=== PATIENT | female | born 1930 | race Caucasian/White ===

== ENCOUNTER 2019-09-29 12:02 | Day surgery (SDC) | payer MEDICARE, BC ==
[2019-09-28 08:35] VITALS: BMI 21.8
[~2019-09-29 12:02] MED LIST: Lidocaine 1% PF 5 ML VIAL ONE; PROPOFOL 200 MG/20 ML VIAL ONE
--- NOTE | 2019-09-29 16:59 | OP ---
DATE OF PROCEDURE: 09/29/2019 PROCEDURE PERFORMED: Esophagogastroduodenoscopy with balloon dilation of distal esophageal ring. PREPROCEDURE DIAGNOSES: 1. Chronic recurrent cough. 2. History of esophageal stricture. 3. History of ineffective esophageal motility disorder. POSTPROCEDURE DIAGNOSES: 1. Exam to second portion of duodenum. 2. 3 cm hiatal hernia. 3. Early Schatzki ring in the distal esophagus at 35 cm from the incisors, nonobstructing, gently dilated with an 18 mm TTS balloon. 4. Biopsies obtained in the distal esophagus for histology. 5. Multiple sessile gastric polyps in the fundus and proximal body, biopsied. 6. Otherwise, normal stomach. 7. Normal duodenum. DESCRIPTION OF PROCEDURE: Written informed consent was obtained. The patient was brought to the endoscopy suite. Total intravenous anesthesia was administered by Mr. Brando Layne CRNA. The patient was placed in the left lateral decubitus position. A bite block was inserted into the mouth. A Pentax video diagnostic gastroscope was introduced into the oral cavity, and the esophagus was carefully intubated. The endoscope was advanced under direct visualization to the second portion of the duodenum. Endoscopic findings revealed a 3 cm hiatal hernia located at 35 to 38 cm from the incisors. At 35 cm, a widely patent nonobstructing Schatzki ring was identified. There was no evidence of ulceration or erosion in the esophagus. After the dilation, biopsies were obtained for histology in the lower esophagus. The endoscope was advanced into the stomach, and the stomach was carefully examined including a retroflexed view of the cardia and fundus. This view demonstrated the hiatal hernia. Also seen were multiple sessile polyps in the fundus and proximal body most consistent with benign fundic polyps. Biopsies were obtained for histology. No other abnormalities were noted in the stomach. The exam of the duodenum from the bulb to the second portion was grossly normal. Using an 18 mm TTS balloon, the distal esophageal ring was dilated for 1 minute intervals at stage II and stage III inflation pressures up to 18 mm in diameter. Postdilation, the esophagus was inspected and appeared somewhat more patent, but no overt tear or bleeding was identified. As stated above, biopsies were obtained in the distal esophagus for histology. The esophagus and stomach were then decompressed as the endoscope was completely removed from the patient. She was repositioned for the colonoscopy. There were no immediate complications. RECOMMENDATIONS: 1. Await biopsy results. 2. Continue Protonix daily. 3. Resume other previous medications. 4. Follow up in GI Clinic in 2 weeks. Job ID: [id number]
--- NOTE | 2019-09-29 17:18 | OP ---
DATE OF PROCEDURE: 09/29/2019 PRIMARY CARE DOCTOR: Dr. Charles Arias. He is actually a thoracic surgeon in [place] at [facility]. PROCEDURE PERFORMED: Colonoscopy with fecal microbiota transplant. PREPROCEDURE DIAGNOSIS: Recurring Clostridioides infection (6 previous episodes). POSTPROCEDURE DIAGNOSES: 1. Exam to mid ascending colon; adequate bowel preparation. 2. Diffusely tortuous and redundant colon. 3. No obvious colitis or ulcers. 4. Colon, status post transplant of donor feces. 5. Cecum not examined due to redundant colon. DESCRIPTION OF PROCEDURE: Written informed consent was obtained. The patient was repositioned after the upper endoscopy. Total intravenous anesthesia was provided by Mr. Brando Layne CRNA. The patient was placed in the left lateral decubitus position. A digital rectal exam was performed and revealed a perianal tag. A Pentax video colonoscope was inserted through the anal canal and advanced under direct visualization to the mid ascending colon. Due to redundancy of the colon, the colonoscope tip could not be safely advanced above the mid ascending colon. Endoscopic findings revealed a grossly normal-appearing colonic mucosa with no overt colitis or ulcers. No neoplasms were identified. The exam was somewhat limited due to the presence of liquid stool and vegetable material scattered throughout the colon. Using a human donor feces manufactured by [employer], a total of 250 mL of liquid fecal material was deposited in the ascending, transverse, and a portion of the proximal descending colon. No additional irrigation water or suctioning was performed after the donor stool was deposited. The colonoscope was slowly removed from the colon, and the procedure was terminated. The patient was transferred to the Day Stay surgery area for postprocedure monitoring. There were no immediate complications. RECOMMENDATIONS: 1. Advised the patient to maintain reclined or supine position for the next 3 hours. 2. Avoid defecating fecal liquid for as long as possible. 3. Resume usual diet. 4. Follow up in GI Clinic in 2 weeks. Job ID: [id number]
== END 2019-09-29 16:10 | disposition home or self-care (01) ==
LOC: SDC 12:02
PROVIDERS: ATTEND Internal Medicine Gastroenterology
PROC: 0DB38ZX Excision of Lower Esophagus, Via Natural or Artificial Opening Endoscopic, Diagnostic (ICD-10-PCS; principal; 2019-09-29)
PROC: 0D738ZZ Dilation of Lower Esophagus, Via Natural or Artificial Opening Endoscopic (ICD-10-PCS; 2019-09-29)
PROC: 3E0H8GC Introduction of Other Therapeutic Substance into Lower GI, Via Natural or Artificial Opening Endoscopic (ICD-10-PCS; 2019-09-29)
DX: K22.2 Esophageal obstruction (principal); K44.9 Diaphragmatic hernia without obstruction or gangrene; K31.7 Polyp of stomach and duodenum; K21.0 Gastro-esophageal reflux disease with esophagitis; A04.71 Enterocolitis due to Clostridium difficile, recurrent; Q43.8 Other specified congenital malformations of intestine; K21.9 Gastro-esophageal reflux disease without esophagitis; M19.90 Unspecified osteoarthritis, unspecified site; E07.9 Disorder of thyroid, unspecified; I10 Essential (primary) hypertension; E78.00 Pure hypercholesterolemia, unspecified; Z79.899 Other long term (current) drug therapy; Z88.2 Allergy status to sulfonamides; Z88.5 Allergy status to narcotic agent
CPT/HCPCS: 43239; 43249; 88305; 88312; 88313; G0455; J2001; J2704

== ENCOUNTER 2019-09-30 19:49 | Inpatient (IN) | payer MEDICARE, BC ==
[~2019-09-30 19:49] MED LIST changes: +Iopamidol-370 76% 500 ML 1 ML ONE; -Lidocaine 1% PF 5 ML VIAL ONE; -PROPOFOL 200 MG/20 ML VIAL ONE
[2019-09-30] MEDS ORDERED: Piperacillin/Tazobactam 4.5 GM VIAL ONE (20:23)
[2019-09-30 20:29] LABS: Hemoglobin 11.7 g/dL (12.0-16.0); Mean Corpuscular Hemoglobin 31.2 pg (27.0-31.0); Mean Corpuscular Volume 91.6 fL (78.0-98.0); Mean Platelet Volume 5.7 fL (7.4-10.4); Platelet Count 376 thou/uL (130-400); RBC Distribution Width 12.1 % (11.5-14.5); Red Blood Cell (RBC) Count 3.74 mill/uL (4.20-5.40); White Blood Cell (WBC) Count 13.4 thou/uL (4.8-10.8)
--- NOTE | 2019-09-30 20:36 | RAD ---
XR Chest 1 View Portable HISTORY: Altered mental status COMPARISON: 11/11/2010 FINDINGS: The heart size is normal. The lungs are well expanded without focal areas of consolidation, pneumothorax or pleural effusions. IMPRESSION: No radiographic evidence of acute cardiopulmonary process.
[2019-09-30 20:53] LABS: ALT (SGPT) 13 U/L (8-55); AST (SGOT) 20 U/L (5-34); Albumin 4.1 g/dL (3.4-4.8); Alkaline Phosphatase 55 U/L (40-110); Anion Gap 15 mmol/L (10-20); BUN (Urea Nitrogen) 14 mg/dL (9.8-20.1); Bilirubin, Total 0.4 mg/dL (0.2-1.2); Calc. Creatinine Clearance 0 mL/min (70-130); Calcium 9.2 mg/dL (7.8-10.44); Carbon Dioxide 24 mmol/L (23-31); Chloride 94 mmol/L (98-107); Estimated GFR-MDRD 48; Globulin 2.9 g/dL (2.4-3.5); Glucose 167 mg/dL (83-110); Potassium 3.8 mmol/L (3.5-5.1); Sodium 129 mmol/L (136-145)
[2019-09-30 21:00] LABS: Band 6 % (5-11); Hypochromia SLIGHT = 6-15 cells (100X) (0-5/hpf); MDiff Complete? YES; Monocytes 2 % (0-10); Neutrophil 92 % (42-75); Platelet Morphology Comment Appears Adequate
--- NOTE | 2019-09-30 21:35 | CT ---
CT ABDOMEN AND PELVIS WITH IV CONTRAST; 09/30/19 HISTORY: Abdominal pain. FINDINGS: There is suggestion of a mas sin the right retroareolar breast. Old right sided rib fractures are pre sent. There are infiltrates at the lung bases, right greater than left. No calcified gallstones are s een. The liver, pancreas and adrenal glands are normal. There are calcified granulomas in the spleen. There are cysts in the kidneys. The urinary bladder is markedly distended. No free air, free fluid, or lymphadenopathy is seen in the abdomen or pelvis. There are vascular calcifications without evide nce of aneurysm dilation of the abdominal aorta. There are degenerative changes and dextroscoliosis o f the lumbar spine. The small bowel loops are not abnormally dilated. The patient is post hysterecto my. IMPRESSION: 1. Probable right breast mass. Evaluation with mammogram and right breast ultrasound is recommen ded. 2. Calcified splenic granulomas. 3. Bilateral renal cysts. 4. Distended urinary bladder. 5. Dextroscoliosis of the lumbar spine. 6. Bibasilar infiltrates, right greater than left. POS: OFF
[2019-09-30] MEDS ORDERED: Cefepime 2 GM VIAL ONE (22:05)
[2019-09-30 23:03] LABS: Bacteria/HPF None Seen HPF (None Seen); Bilirubin Negative (Negative); Blood, Urine Trace (Negative); Clarity Clear (Clear); Glucose, Urine (Dipstick) Normal (Negative); Leukocyte Negative Leu/uL (Negative); Nitrite Negative (Negative); Protein, Urine (Dipstick) 20 mg/dL (Neg-Trace); RBC/HPF 0-3 HPF (0-3); Squamous Epithelial 0-3 HPF (0-3); Urobilinogen Normal mg/dL (Less than 2); WBC/HPF 0-3 HPF (0-3)
[2019-09-30 23:16] LABS: Troponin I 0.067 ng/mL (< 0.028)
[2019-09-30] MEDS ORDERED: Ondansetron PF 4 MG/2 ML Vial IVP PRN (23:59)
[2019-09-30] MEDS ORDERED: Ondansetron ODT 4 MG TAB SL PRN (23:59)
[2019-10-01 01:54] LABS: Troponin I 0.072 ng/mL (< 0.028)
[2019-10-01] MEDS ORDERED: Acetaminophen 325 MG TAB PO PRN (02:00)
[2019-10-01] MEDS ORDERED: Oseltamivir 6 MG/ML ORAL SUSP PO SCH (02:30)
[2019-10-01] MEDS: Lactated Ringer's 1,000 ML IV SCH ×2 (03:50→04:07)
[2019-10-01] MEDS ORDERED: Simethicone Chewable 80 MG TAB PO PRN (03:53)
[2019-10-01] MEDS ORDERED: Simethicone Chewable 80 MG TAB PO SCH (04:00)
[2019-10-01] MEDS: Acetaminophen 650 MG/20.3 ML UDCUP PO PRN ×3 (04:07→20:38)
[2019-10-01] MEDS: Sodium Chloride 0.9% 1,000 ML IV SCH ×3 (04:11→23:35)
--- NOTE | 2019-10-01 04:50 | PDOC.FPRHP ---
- History of Present Illness Chief Complaint: AMS History of Present Illness: Pt is an 89 yo female who presented to the emergency department with AMS, abdominal pain, chest pain. She became altered on 09/30 noticed by her son in the afternoon. She was febrile as well and given tylenol by her son. She was complaining of diffuse abdominal pain. 09/29 she had a fecal transplant c-diff infection. During her interview she denied any chest pain but it was reported by the emergency department. Otherwise unable to obtain any information from the patient due to mental status. Her son was not with her during interview. ED Course: In the ED she had a CT abdomen revealing no acute abdominal pathology but did find bilateral lower lobe pneumonia not seen on CXR. She received NS 1.5 L, levaquin, cefepime, vanc, and zosyn. WBC mildly elevated, 12.4. Na 129. Trop 0.067. - Allergies/Adverse Reactions Allergies Allergy/AdvReac Type Severity Reaction Status Date / Time codeine Allergy Verified 10/01/19 00:48 hydrocodone [From Vicodin] Allergy Verified 10/01/19 00:48 Sulfa (Sulfonamide Allergy Verified 10/01/19 00:48 Antibiotics) - Home Medications Medication Instructions Recorded Confirmed Type Amitriptyline HCl 1 tab PO HS PRN 09/28/19 10/01/19 History Levothyroxine Sodium [Synthroid] 125 mcg PO DAILY 09/28/19 10/01/19 History Mirabegron [Myrbetriq] 50 mg PO DAILY 09/28/19 10/01/19 History Pantoprazole [Protonix] 60 mg PO DAILY 09/28/19 10/01/19 History Spironolactone 25 mg PO BID 09/28/19 10/01/19 History Ondansetron [Zofran ODT] 1 tab PO Q6HR PRN 10/01/19 10/01/19 History Vancomycin HCl 1 tab PO QID 10/01/19 10/01/19 History predniSONE 1 tab PO DAILY 10/01/19 10/01/19 History - History PMHx: HTN, Recent C-diff infection w/ fecal transplant 09/29, scoliosis, GERD PSHx: unable to obtain FHx: unable to obtain Social: unable to obtain - Review of Systems ROS unobtainable: due to mental status Cardiovascular: denies: chest pain Gastrointestinal: reports: abdominal pain. denies: diarrhea Musculoskeletal: reports: pain (Pt was AAO x 3 but had difficulty answering questions with discomfort, understanding of questions) - Vital signs BP: 158/72 HR: 126 RR: 20 Tmax: 100.2 Pox: 95% on 3L Wt: 47 kg - Physical Exam Constitutional: awake, alert and oriented -Constitutional: uncomfortable appearing HEENT: PERRLA, EOMI Neck: FROM, no JVD Heart: RRR, normal S1/S2, no murmurs/rubs/gallops, no edema -Lungs: Crackles in R base, did not appreciate crackles in L, air movement not diminished -Abdomen: mild distention, tenderness to deep palpation, bowel sounds present -Skin: abrasion on lateral RLE Heme/Lymphatic: no purpura, no petechia -Psychiatric: poor memory FMR H&P: Results - Labs Result Diagrams: 10/01/19 04:52 10/01/19 04:52 Lab results: WBC 13.4 thou/uL (4.8-10.8) H 09/30/19 20:18 Hgb 11.7 g/dL (12.0-16.0) L 09/30/19 20:18 Hct 34.3 % (36.0-47.0) L 09/30/19 20:18 MCV 91.6 fL (78.0-98.0) 09/30/19 20:18 Plt Count 376 thou/uL (130-400) 09/30/19 20:18 Band Neuts % (Manual) 6 % (5-11) 09/30/19 20:18 Sodium 129 mmol/L (136-145) L 09/30/19 20:18 Potassium 3.8 mmol/L (3.5-5.1) 09/30/19 20:18 Chloride 94 mmol/L (98-107) L 09/30/19 20:18 Carbon Dioxide 24 mmol/L (23-31) 09/30/19 20:18 BUN 14 mg/dL (9.8-20.1) 09/30/19 20:18 Creatinine 1.07 mg/dL (0.6-1.1) 09/30/19 20:18 Glucose 167 mg/dL (83-110) H 09/30/19 20:18 Lactic Acid 0.8 mmol/L (0.5-2.2) 09/30/19 20:18 Calcium 9.2 mg/dL (7.8-10.44) 09/30/19 20:18 Total Bilirubin 0.4 mg/dL (0.2-1.2) 09/30/19 20:18 AST 20 U/L (5-34) 09/30/19 20:18 ALT 13 U/L (8-55) 09/30/19 20:18 Alkaline Phosphatase 55 U/L (40-110) 09/30/19 20:18 Serum Total Protein 7.0 g/dL (6.0-8.3) 09/30/19 20:18 Albumin 4.1 g/dL (3.4-4.8) 09/30/19 20:18 Urine Ketones 10 mg/dL (Negative) A 09/30/19 22:17 Urine Blood Trace (Negative) A 09/30/19 22:17 Urine Nitrite Negative (Negative) 09/30/19 22:17 Ur Leukocyte Esterase Negative Krish/uL (Negative) 09/30/19 22:17 Urine RBC 0-3 HPF (0-3) 09/30/19 22:17 Urine WBC 0-3 HPF (0-3) 09/30/19 22:17 Ur Squamous Epith Cells 0-3 HPF (0-3) 09/30/19 22:17 Urine Bacteria None Seen HPF (None Seen) 09/30/19 22:17 - EKG Interpretation EKG: Sinus tachycardia, PAC present - Radiology Interpretation CT scan - abdomen Status: report reviewed by me Additional comment: No acute abdominal abnormalities, bilateral pulm infiltrates Chest x-ray Status: image reviewed by me Additional comment: no acute abnormalities, rotate chest FMR H&P: A/P - Problem List (1) Bilateral pneumonia Current Visit: Yes Status: Acute Code(s): J18.9 - PNEUMONIA, UNSPECIFIED ORGANISM (2) Influenza Current Visit: Yes Status: Acute Code(s): J11.1 - FLU DUE TO UNIDENTIFIED INFLUENZA VIRUS W OTH RESP MANIFEST (3) Hyponatremia Current Visit: Yes Status: Acute Code(s): E87.1 - HYPO-OSMOLALITY AND HYPONATREMIA (4) Elevated troponin Current Visit: Yes Status: Acute Code(s): R79.89 - OTHER SPECIFIED ABNORMAL FINDINGS OF BLOOD CHEMISTRY (5) Breast mass, right Current Visit: Yes Status: Acute Code(s): N63.10 - UNSPECIFIED LUMP IN THE RIGHT BREAST, UNSPECIFIED QUADRANT - Plan Pt is an 89 yo female here for: # Bilateral Pneumonia, HAP Recent procedure. Treating for HAP. - cefepime, levaquin, vanc - NS 1.5 L - NS 75 mls/hr - tylenol prn - NC oxygen as needed # Influenza - Tamiflu 30 mg daily, adjust for CrCl. Currently CrCL 26 # C-Diff w/ fecal transplant on 09/29 - safety pre-cautions # Abdominal Pain likely 09/25 gas - simethicone one time # Hyponatremia - pending urine/serum osmol - likely secondary to dehydration # R Breast Mass - mammogram outpt if pt and family want to pursue # Follow up with son for PMH. - he will bring in home medications on 10/01 Fluids: NS 75 mls/hr Diet: HH VTE: lovenox Code: Full Dispo: > 48 hrs FMR H&P: Upper Level - Plan Date/Time: 10/01/19 0447 Pamela Sawyer DO, have evaluated this patient and agree with findings/plan as outlined by promotions intern resident. Pertinent changes/additions are listed here. Pt is a 83yo F with hx of recurrent Cdiff undergoing endoscopy with fecal transplant yesterday who presented to ED today with fever and AMS. She was found to meet sepsis criteria with reported fever 103 at home, (Tmax 100.3 here) , tachycardia, and elevated WBC 13.4. On CTscan of abd she was found to have b/ l pneumonia of lower lobes. She was also found to be influenza A positive. VS significant for tachycardia and O2 sats of 97% on 3L. Family is no longer around, but patient is conversational and AOx2. She complains of abdominal pain and cough. On exam she is ill appearing, mildly tachypnic, and moaning. She has soft systolic murmur 2/6. Her abdomen is distended and mildly ttp, no guarding or rebound. Labs significant for LA 1.6, Na 129, WBC13.4, 6% bands. She received IV Vanc, Zosyn, Cefepime, and Levaquin in ED. A/P: 1) Sepsis 2/2 Influenza and Bilateral PNA- concern for HAP although not technically sx onset after 48h of hospital stay. Will continue Vanc, Cefepime, and Levaquin. S/p 30ml/kg NS bolus. Continue MIVF. Start Tamiflu. Blood cx/ urine cx pending. Procal pending. 2)MILANA vs CKD: s/p IVF, repeat in AM, consider urine studies to further evaluate. Renally dose meds. 3)Abdominal Pain and Distension Likely 2/2 Gas Pain- give simethicone 4)Hyponatremia: Likely hypovolemic hyponatremia. s/p IVF, Continue maintenance IVF with NS. Urine and serum Osms pending. 5)Elevated Troponin: trend. No EKG ST changes concerning for ACS. Awaiting home med rec. Plan to restart appropriate meds for chronic medical problems. See promotions intern note for further details. DVT PPx: Lovenox GI Ppx: none Dispo: Stable, LOS>48h Addendum - Attending - Attending Attestation Date/Time: 10/01/19 8252 I personally evaluated the patient and discussed the management with Dr. Tian and Scott. I agree with the History, Examination, Assessment and Plan documented above with any addition or exceptions noted below. Was feeling much better this morning when I examined her. No cp/sob. Mild cough. Otherwise no complaints.
[2019-10-01 05:01] LABS: #Lymphocytes 0.4 thou/uL (1.20-3.40); #Monocytes 0.7 thou/uL (0.11-0.59); #Neutrophils 17.5 thou/uL (1.40-6.50); %Basophils 0.2 % (0.0-1.0); %Eosinophils 0.1 % (0.0-10.0); %Lymphocytes 2.1 % (21.0-51.0); %Monocytes 3.7 % (0.0-10.0); %Neutrophils 93.9 % (42.0-75.0); Hemoglobin 10.6 g/dL (12.0-16.0); Mean Corpuscular HGB CONC 34.2 g/dL (32.0-36.0); Mean Corpuscular Hemoglobin 31.4 pg (27.0-31.0); Mean Corpuscular Volume 91.9 fL (78.0-98.0); Mean Platelet Volume 5.7 fL (7.4-10.4); Platelet Count 317 thou/uL (130-400); RBC Distribution Width 12.1 % (11.5-14.5); Red Blood Cell (RBC) Count 3.38 mill/uL (4.20-5.40); White Blood Cell (WBC) Count 18.6 thou/uL (4.8-10.8)
[2019-10-01 05:15] LABS: Anion Gap 15 mmol/L (10-20); BUN (Urea Nitrogen) 13 mg/dL (9.8-20.1); Calc. Creatinine Clearance 37 mL/min (70-130); Calcium 8.3 mg/dL (7.8-10.44); Carbon Dioxide 18 mmol/L (23-31); Chloride 99 mmol/L (98-107); Estimated GFR-MDRD 64; Glucose 121 mg/dL (83-110); Potassium 3.6 mmol/L (3.5-5.1); Sodium 128 mmol/L (136-145)
[2019-10-01 05:20] LABS: Troponin I 0.049 ng/mL (< 0.028)
[2019-10-01] MEDS: Oseltamivir 75 MG CAP PO SCH ×2 (08:52→20:37)
[2019-10-01] MEDS: Simethicone Chewable 80 MG TAB PO SCH ×4 (08:52→20:37)
[2019-10-01] MEDS: Cefepime 2 GM in Sodium Chloride 0.9% 100 ML IVPB SCH ×2 (08:53→20:38)
[2019-10-01] MEDS: Enoxaparin Sodium 30 MG/0.3 ML SYRINGE SC SCH (08:54)
[2019-10-01] MEDS ORDERED: Amitriptyline HCl 10 MG TAB PO PRN (17:23)
[2019-10-01] MEDS ORDERED: Ondansetron ODT 4 MG TAB PO PRN (17:23)
--- NOTE | 2019-10-01 19:08 | PDOC.BPN ---
- Brief Progress Note At 1830 on 10/01 the Resident Night Team was notified by Nursing staff that patient was coughing severely and potentially aspirating fluids during attempted swallowing. The patient was evaluated and counseled on the importance of avoiding aspiration events while being treated for PNA. The patient was encouraged to allow Medical Staff to place an order for Speech Therapy to do a formal evaluation for her swallowing function and to tailor diet and liquid regimens as needed in order to avoid potentially worsening her PNA. The patient stated that she understood the risks associated with aspiration and that she had been seen by many doctors for this in the past, and that she had a small hiatal hernia that "we couldn't do anything about." She adamantly denied the Resident Night Team's recommendation to be formally evaluated, and stated that she did not feel that her coughing was problematic. She stated that she did not want to be seen by any additional Medical Staff for the duration of the evening.
[2019-10-01] MEDS: Spironolactone 25 MG TAB PO SCH (20:37)
[2019-10-01] MEDS ORDERED: FLU VACC TS2019-20(65YR UP)/PF 180 MCG/0.5 ML SYRINGE IM ONE (21:00)
[2019-10-01] MEDS ORDERED: Prevnar 13-Val Conj/PF 0.5 ML SYRINGE IM ONE (21:00)
[2019-10-01 22:31] LABS: Vancomycin, Random 6.6 ug/mL (See Comment)
[2019-10-01] MEDS ORDERED: Vancomycin HCl 750 MG in Sodium Chloride 0.9% 250 ML 250 ML IVPB SCH (23:00)
[2019-10-02 05:03] LABS: #Lymphocytes 0.6 thou/uL (1.20-3.40); #Monocytes 0.4 thou/uL (0.11-0.59); %Basophils 0.2 % (0.0-1.0); %Eosinophils 0.1 % (0.0-10.0); %Lymphocytes 4.1 % (21.0-51.0); %Monocytes 2.9 % (0.0-10.0); %Neutrophils 92.8 % (42.0-75.0); Hemoglobin 10.3 g/dL (12.0-16.0); Mean Corpuscular HGB CONC 33.6 g/dL (32.0-36.0); Mean Corpuscular Hemoglobin 31.3 pg (27.0-31.0); Mean Corpuscular Volume 93.2 fL (78.0-98.0); Mean Platelet Volume 6.3 fL (7.4-10.4); Platelet Count 299 thou/uL (130-400); RBC Distribution Width 12.3 % (11.5-14.5); Red Blood Cell (RBC) Count 3.29 mill/uL (4.20-5.40); White Blood Cell (WBC) Count 15.1 thou/uL (4.8-10.8)
[2019-10-02 05:23] LABS: Anion Gap 10 mmol/L (10-20); BUN (Urea Nitrogen) 10 mg/dL (9.8-20.1); Calc. Creatinine Clearance 43 mL/min (70-130); Calcium 7.9 mg/dL (7.8-10.44); Carbon Dioxide 20 mmol/L (23-31); Chloride 102 mmol/L (98-107); Estimated GFR-MDRD 76; Glucose 74 mg/dL (83-110); Potassium 3.3 mmol/L (3.5-5.1); Sodium 129 mmol/L (136-145)
[2019-10-02] MEDS: Levothyroxine Sodium 125 MCG TAB PO SCH (05:57)
--- NOTE | 2019-10-02 06:41 | PDOC.FM ---
- Subjective Subjective: Overnight, pt had difficulty swallowing with cough and concern for aspiration, evaluated by night team. This morning pt states this is a chronic problem and is not interested in any testing or counseling by Speech to improve this. She states her CP and ABD pain have resolved. Denies any fever/chills, n/v, CP, SOB. Still feeling very weak with little appetite. Pt states she is not interested in any placement and would like to be discharged home when ready. - Objective MAR Reviewed: Yes Vital Signs & Weight: Vital Signs (12 hours) Temp Pulse Resp BP Pulse Ox 10/02/19 04:00 99.6 F 96 21 H 172/86 H 97 10/01/19 23:37 99.6 F 96 18 130/79 98 10/01/19 20:00 100.8 F H 95 18 190/85 H 99 Weight Admit Weight 51.71 kg Weight 51.71 kg I&O: 09/30/19 10/01/19 10/02/19 06:59 06:59 06:59 Intake Total 1850 Output Total 2900 Balance -1050 Result Diagrams: 10/04/19 05:37 10/04/19 05:37 EKG Reviewed by me: Yes (tele: no acute events, NSR) Phys Exam - Physical Examination Constitutional: NAD (frail, chronically ill-appearing) HEENT: moist MMs Neck: supple Respiratory: no wheezing, no rales, no rhonchi, clear to auscultation bilateral Cardiovascular: RRR, no significant murmur, no rub Gastrointestinal: soft, non-tender, no distention, positive bowel sounds Musculoskeletal: no edema Neurological: non-focal, moves all 4 limbs Psychiatric: normal affect, A&O x 3 Dx/Plan (1) Bilateral pneumonia Code(s): J18.9 - PNEUMONIA, UNSPECIFIED ORGANISM Status: Acute (2) Elevated troponin Code(s): R79.89 - OTHER SPECIFIED ABNORMAL FINDINGS OF BLOOD CHEMISTRY Status : Acute (3) Hyponatremia Code(s): E87.1 - HYPO-OSMOLALITY AND HYPONATREMIA Status: Acute (4) Influenza Code(s): J11.1 - FLU DUE TO UNIDENTIFIED INFLUENZA VIRUS W OTH RESP MANIFEST Status: Acute - Plan Plan: Pt is an 89 yo female with h/o recent Cdif s/p fecal transplant, HTN presents for AMS and chest pain found to have BL Peumonia and Flu # Bilateral Pneumonia - Suspect 2/2 influenza, tx with Tamiflu 75mg BID x5d - Sxs of CP, fever, abd pain and cough - Started on cefepime, levaquin, and vanc - will consider escalation of abx today with negative cultures to date - NC prn, will wean as tolerated # Influenza - Tamiflu per above #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, chronic in nature, speech and assistant director of financial aid consulted, apprec recs #Malnutrition and chronic deconditioning - PT/OT/Speech eval and tx - Ensure BID - Will check Vit D # C-Diff w/ fecal transplant on 09/29 - safety pre-cautions, no current diarrhea or abd pain # Hyponatremia - suspected chronic 2/2 malnutrition and volume depletion - unable to obtain Ur Na 2/2 IVF since admission - cont gently IVF hydration of NS @ 75cc/hr and encourage PO intake, assistant director of financial aid consulted, apprec recs # R Breast Mass - mammogram outpt if pt and family want to pursue #HTN - cont home meds #Hypothyroidism - cont home meds PCP: [facility] Fluids: NS 75 mls/hr Diet: Regular VTE: lovenox Code: Full Dispo: Admitted for BL pneumonia, suspected 2/2 influenza, cont abx and tamiflu , desclate as appropriate. Wean O2. Anticipate hospitalization >48 hours pending clinical course. Addendum - Attending - Attending Attestation Date/Time: 10/05/19 9710 I personally evaluated the patient and discussed the management with the team. I agree with the History, Examination, Assessment and Plan documented above with any addition or exceptions noted below.
[2019-10-02] MEDS ORDERED: Potassium Chloride 20 MEQ TAB PO SCH (07:00)
[2019-10-02] MEDS ORDERED: Oseltamivir 6 MG/ML ORAL SUSP PO SCH (09:00)
[2019-10-02] MEDS: Enoxaparin Sodium 30 MG/0.3 ML SYRINGE SC SCH (09:51)
[2019-10-02] MEDS: Magnesium Oxide 400 MG TAB PO SCH ×2 (09:51→21:34)
[2019-10-02] MEDS: Oseltamivir 75 MG CAP PO SCH ×2 (09:52→21:35)
[2019-10-02] MEDS: Spironolactone 25 MG TAB PO SCH ×2 (09:52→21:34)
[2019-10-02] MEDS: Simethicone Chewable 80 MG TAB PO SCH ×4 (09:52→21:34)
[2019-10-02] MEDS: Cefepime 2 GM in Sodium Chloride 0.9% 100 ML IVPB SCH ×2 (09:53→21:35)
[2019-10-02] MEDS ORDERED: Lisinopril 10 MG TAB PO SCH (12:45)
[2019-10-02] MEDS: Vancomycin HCl 750 MG in Sodium Chloride 0.9% 250 ML 250 ML IVPB SCH (12:47)
[2019-10-02] MEDS: Acetaminophen 650 MG/20.3 ML UDCUP PO PRN (15:30)
[2019-10-02] MEDS: hydrALAZINE 20 MG/ML VIAL SLOW IVP PRN (17:43)
--- NOTE | 2019-10-02 18:18 | PDOC.BPN ---
- Brief Progress Note At approximately 1745 the Resident Night Team was notified that the patient was taking off her telemetry leads and refusing her medications again. On initial evaluation, the patient was A&Ox3 and in no acute distress. The patient stated that she did not want to be hospitalized and that she felt that the hospital staff "didn't explain things" to her adequately. The patient was counseled on the seriousness of her current illness, and how ABx and supportive therapy were essential for treating her bilateral pneumonia and concurrent influenza infection. The importance of treatment for these two conditions was stressed multiple times, and the patient was told that she could leave if she chose, but that it was against the recommendations of medical staff. The patient eventually agreed to remain hospitalized in order to continue her current plan of care, and efforts were made to contact her son in order to provide gentle reassurance - although he was unavailable at the time.
--- NOTE | 2019-10-02 19:36 | PDOC.BPN ---
- Brief Progress Note Paged to bedside for patient threatening to leave AMA again Son at bedside, states she is confused when she wakes up, forgets where she is at currently axox3 Reviewed plan of care with patient she agrees to stay the night Will give melatonin to assist with sleep suspect sundowning, continue frequent reorientation
[2019-10-02] MEDS ORDERED: Melatonin 3 MG TAB PO PRN (19:37)
[2019-10-02] MEDS ORDERED: Dicyclomine 10 MG CAP PO PRN (19:37)
[2019-10-03] MEDS: Sodium Chloride 0.9% 1,000 ML IV SCH (02:05)
[2019-10-03] MEDS: Acetaminophen 650 MG/20.3 ML UDCUP PO PRN (03:50)
[2019-10-03] MEDS: hydrALAZINE 20 MG/ML VIAL SLOW IVP PRN ×2 (03:58→13:07)
[2019-10-03 05:35] LABS: #Lymphocytes 0.7 thou/uL (1.20-3.40); #Monocytes 0.4 thou/uL (0.11-0.59); #Neutrophils 8.4 thou/uL (1.40-6.50); %Eosinophils 0.1 % (0.0-10.0); %Lymphocytes 7.3 % (21.0-51.0); %Monocytes 4.2 % (0.0-10.0); %Neutrophils 88.4 % (42.0-75.0); Hemoglobin 10.1 g/dL (12.0-16.0); Mean Corpuscular HGB CONC 34.5 g/dL (32.0-36.0); Mean Corpuscular Hemoglobin 31.5 pg (27.0-31.0); Mean Corpuscular Volume 91.1 fL (78.0-98.0); Mean Platelet Volume 6.6 fL (7.4-10.4); Platelet Count 302 thou/uL (130-400); RBC Distribution Width 12.3 % (11.5-14.5); White Blood Cell (WBC) Count 9.5 thou/uL (4.8-10.8)
--- NOTE | 2019-10-03 05:51 | PDOC.FM ---
- Subjective Subjective: She is feeling better this morning then she was last night. She has no concerns currently. She is drinking well on examination this morning. - Objective MAR Reviewed: Yes Vital Signs & Weight: Vital Signs (12 hours) Temp Pulse Resp BP BP Pulse Ox 10/03/19 03:58 100 181/86 H 10/03/19 03:44 100.5 F H 101 H 23 H 181/86 H 97 10/03/19 00:00 98.9 F 98 24 H 191/80 H 93 L 10/02/19 21:10 99.2 F 90 20 178/81 H 94 L 10/02/19 18:10 98.5 F Weight Admit Weight 51.71 kg Weight 51.71 kg I&O: 10/01/19 10/02/19 10/03/19 06:59 06:59 06:59 Intake Total 1850 1620 Output Total 2900 900 Balance -1050 720 Result Diagrams: 10/03/19 04:31 10/03/19 04:31 Phys Exam - Physical Examination Constitutional: NAD HEENT: moist MMs, oral pharynx no lesions Neck: no nodes, supple Rhonchi present on exam this morning Cardiovascular: RRR, no significant murmur Gastrointestinal: soft, non-tender, positive bowel sounds Musculoskeletal: no edema, pulses present Neurological: moves all 4 limbs Lymphatic: no nodes Psychiatric: normal affect Skin: no rash Dx/Plan (1) Bilateral pneumonia Code(s): J18.9 - PNEUMONIA, UNSPECIFIED ORGANISM Status: Acute (2) Breast mass, right Code(s): N63.10 - UNSPECIFIED LUMP IN THE RIGHT BREAST, UNSPECIFIED QUADRANT Status: Acute (3) Hyponatremia Code(s): E87.1 - HYPO-OSMOLALITY AND HYPONATREMIA Status: Acute (4) Influenza Code(s): J11.1 - FLU DUE TO UNIDENTIFIED INFLUENZA VIRUS W OTH RESP MANIFEST Status: Acute (5) Elevated troponin Code(s): R79.89 - OTHER SPECIFIED ABNORMAL FINDINGS OF BLOOD CHEMISTRY Status : Acute - Plan Plan: Pt is an 89 yo female with h/o recent Cdif s/p fecal transplant, HTN presents for AMS and chest pain found to have BL Peumonia and Flu 1. Bilateral Pneumonia * Suspect 2/2 influenza, tx with Tamiflu 75mg BID x5d * Sxs of CP, fever, abd pain and cough * Currently on cefepime and vanc - will consider escalation of abx today with negative cultures to date * Levaquin not continued * Currently sating well on room air 2. Influenza * Tamiflu per above 3. Dysphagia * likely functional, chronic in nature, speech and chemical operator consulted, apprec recs 4. Malnutrition and chronic deconditioning * PT/OT/Speech eval and tx * Ensure BID * Will check Vit D 5. C-Diff w/ fecal transplant on 09/29 * -safety pre-cautions, no current diarrhea or abd pain 6. Hyponatremia * suspected chronic 2/2 malnutrition and volume depletion * unable to obtain Ur Na 2/2 IVF since admission * cont gently IVF hydration of NS @ 75cc/hr and encourage PO intake, chemical operator consulted, apprec recs 7. R Breast Mass * mammogram outpt if pt and family want to pursue 8. HTN * cont home meds 9. Hypothyroidism * cont home meds 10. UTI * UA: Neg * UCx: Beta-Hemolytic Strep * Covered by current antibiotic regimen PCP: [facility] Fluids: NS 75 mls/hr Diet: Regular VTE: lovenox Code: Full Dispo: Tele inpt for BL pneumonia, suspected 2/2 influenza, cont abx and tamiflu , desclate as appropriate. LOS > 48H. Addendum - Attending - Attending Attestation Date/Time: 10/03/19 2893 I personally evaluated the patient and discussed the management with Dr. Pereira I agree with the History, Examination, Assessment and Plan documented above with any addition or exceptions noted below. Improving with tamiflu and abx. Replace electrolytes today. Move to medical. Will likely d/c in the next 24 to 48 hrs pending clinical course.
[2019-10-03 05:55] LABS: Anion Gap 11 mmol/L (10-20); BUN (Urea Nitrogen) 7 mg/dL (9.8-20.1); Calc. Creatinine Clearance 46 mL/min (70-130); Calcium 8.1 mg/dL (7.8-10.44); Carbon Dioxide 21 mmol/L (23-31); Chloride 99 mmol/L (98-107); Estimated GFR-MDRD 83; Glucose 113 mg/dL (83-110); Magnesium 1.5 mg/dL (1.6-2.6); Potassium 3.3 mmol/L (3.5-5.1); Sodium 128 mmol/L (136-145)
[2019-10-03] MEDS: Levothyroxine Sodium 125 MCG TAB PO SCH (06:45)
[2019-10-03] MEDS ORDERED: Magnesium 2 GM/50 ML 2 GM in Premix Bag 1 BAG IVPB SCH (08:15)
[2019-10-03] MEDS ORDERED: Potassium Chloride 40 MEQ in Sodium Chloride 0.9% 250 ML 250 ML IVPB SCH (08:30)
[2019-10-03] MEDS: Enoxaparin Sodium 30 MG/0.3 ML SYRINGE SC SCH (11:07)
[2019-10-03] MEDS: Spironolactone 25 MG TAB PO SCH ×2 (11:07→20:55)
[2019-10-03] MEDS: Simethicone Chewable 80 MG TAB PO SCH ×4 (11:07→20:55)
[2019-10-03] MEDS: Oseltamivir 75 MG CAP PO SCH ×2 (11:08→20:55)
[2019-10-03] MEDS: Lisinopril 10 MG TAB PO SCH (11:08)
[2019-10-03] MEDS: Cefepime 2 GM in Sodium Chloride 0.9% 100 ML IVPB SCH ×2 (11:09→20:55)
[2019-10-03 12:31] VITALS: BMI 23.1
[2019-10-03] MEDS ORDERED: Hydrochlorothiazide 25 MG TAB PO SCH (14:17)
[2019-10-03] MEDS: Vancomycin HCl 750 MG in Sodium Chloride 0.9% 250 ML 250 ML IVPB SCH (15:55)
[2019-10-03] MEDS ORDERED: Vancomycin HCl 750 MG in Sodium Chloride 0.9% 250 ML 250 ML IVPB SCH (16:00)
[2019-10-03] MEDS ORDERED: Amlodipine 5 MG TAB PO SCH (16:30)
[2019-10-04] MEDS: Acetaminophen 650 MG/20.3 ML UDCUP PO PRN (00:57)
[2019-10-04 06:01] LABS: #Lymphocytes 0.7 thou/uL (1.20-3.40); #Monocytes 0.5 thou/uL (0.11-0.59); #Neutrophils 8.2 thou/uL (1.40-6.50); %Basophils 0.1 % (0.0-1.0); %Eosinophils 0.3 % (0.0-10.0); %Lymphocytes 7.6 % (21.0-51.0); %Monocytes 5.6 % (0.0-10.0); %Neutrophils 86.5 % (42.0-75.0); Hemoglobin 10.8 g/dL (12.0-16.0); Mean Corpuscular HGB CONC 33.9 g/dL (32.0-36.0); Mean Corpuscular Hemoglobin 31.5 pg (27.0-31.0); Mean Platelet Volume 6.3 fL (7.4-10.4); Platelet Count 300 thou/uL (130-400); RBC Distribution Width 12.4 % (11.5-14.5); Red Blood Cell (RBC) Count 3.43 mill/uL (4.20-5.40); White Blood Cell (WBC) Count 9.5 thou/uL (4.8-10.8)
[2019-10-04] MEDS ORDERED: Benzonatate 100 MG CAP PO PRN (06:06)
--- NOTE | 2019-10-04 06:16 | PDOC.FM ---
- Subjective Subjective: She reports she is breathing well. She says she is not eating much, but she generally does not eat much at home. She says she has been drinking fluids and has no other complaints. - Objective MAR Reviewed: Yes Vital Signs & Weight: Vital Signs (12 hours) Temp Pulse Resp BP Pulse Ox 10/04/19 04:00 97.9 F 99 20 150/77 H 94 L 10/04/19 00:00 98.3 F 101 H 20 181/95 H 92 L 10/03/19 20:00 97.6 F 101 H 20 182/84 H 93 L Weight Admit Weight 51.71 kg Weight 50.405 kg I&O: 10/02/19 10/03/19 10/04/19 06:59 06:59 06:59 Intake Total 1850 2640 470 Output Total 2900 1500 350 Balance -1050 1140 120 Result Diagrams: 10/04/19 05:37 10/04/19 05:37 Phys Exam - Physical Examination Constitutional: NAD HEENT: PERRLA, moist MMs, oral pharynx no lesions Neck: no nodes, supple Rhonchi present bilaterally Cardiovascular: RRR, no significant murmur Gastrointestinal: soft, non-tender, positive bowel sounds Musculoskeletal: no edema, pulses present Neurological: moves all 4 limbs Lymphatic: no nodes Psychiatric: normal affect Skin: no rash, normal turgor Dx/Plan (1) Bilateral pneumonia Code(s): J18.9 - PNEUMONIA, UNSPECIFIED ORGANISM Status: Acute (2) Breast mass, right Code(s): N63.10 - UNSPECIFIED LUMP IN THE RIGHT BREAST, UNSPECIFIED QUADRANT Status: Acute (3) Hyponatremia Code(s): E87.1 - HYPO-OSMOLALITY AND HYPONATREMIA Status: Acute (4) Influenza Code(s): J11.1 - FLU DUE TO UNIDENTIFIED INFLUENZA VIRUS W OTH RESP MANIFEST Status: Acute (5) Elevated troponin Code(s): R79.89 - OTHER SPECIFIED ABNORMAL FINDINGS OF BLOOD CHEMISTRY Status : Acute - Plan Plan: Pt is an 89 yo female with h/o recent Cdif s/p fecal transplant, HTN presents for AMS and chest pain found to have BL Pneumonia and Flu 1. Bilateral Pneumonia 2/2 to Influenza * Suspect 2/2 influenza, tx with Tamiflu 75mg BID x5d * Sxs of CP, fever, abd pain and cough * Currently on cefepime and vanc - will consider de-escalation of abx today with negative cultures to date * Levaquin not continued * Currently sating well on room air * Procal: 1.3 > 0.52 2. Dysphagia * Likely functional, chronic in nature, speech and recycling assistant consulted, apprec recs 3. Malnutrition and chronic deconditioning * PT/OT/Speech eval and tx * Ensure BID 4. 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 R Breast Mass * Mammogram outpt if pt and family want to pursue 7. HTN * Cont home meds 8. Hypothyroidism * Cont home meds 9. UTI * UA: Neg * UCx: Beta-Hemolytic Strep * Covered by current antibiotic regimen Fluids: SL Diet: Regular VTE: lovenox Code: Full PCP: [facility] Dispo: Tele inpt for BL pneumonia, suspected 2/2 influenza, consider change to oral abx and tamiflu. Contact CM to see about HH. LOS > 48H. Addendum - Attending - Attending Attestation Date/Time: 10/04/19 1212 I personally evaluated the patient and discussed the management with Dr. Pereira I agree with the History, Examination, Assessment and Plan documented above with any addition or exceptions noted below. I had a long conversation (approx 35 minutes) with the patient, her daughter, and her son (lives with patient) regarding discharge planning. I informed them that the required treatment for her in the hospital was completed and they would need to decide where she wanted to be discharged. She had just completed PT today at the time of my examination and per the therapist she was only able to stand for 5 minutes before fatigue prevented further treatment. The patient stated she wanted to go home and did not want to go to a facility citing multiple complaints from past experiences. I explained my concern to the patient and her family if she were to go directly home from the hospital including risk for fall, PNA, and readmission to the hospital. The patient acknowledged that she was weak and that she probably needed SNF/rehab placement. The patient's son who is her primary caregiver stated they currently have HH and comfort keepers with her nearly around the clock and have been working with her on outpatient PT. He stated that he felt whatever she would receive at a facility would be no better than going home. I again stated my concerns with discharging home and asked the patient and family to discuss their options and decide what their plan is. Dr. Pereira will visit with them this afternoon and finalize the plan. Dispo will either be D/C home today with HH and PT/OT or will arrange SNF/Rehab placement. If she elects to go home I feel her readmission risk is extremely high.
[2019-10-04 06:20] LABS: Anion Gap 14 mmol/L (10-20); BUN (Urea Nitrogen) 9 mg/dL (9.8-20.1); Calc. Creatinine Clearance 46 mL/min (70-130); Calcium 8.5 mg/dL (7.8-10.44); Carbon Dioxide 19 mmol/L (23-31); Chloride 96 mmol/L (98-107); Estimated GFR-MDRD 84; Glucose 93 mg/dL (83-110); Sodium 125 mmol/L (136-145)
[2019-10-04] MEDS: Levothyroxine Sodium 125 MCG TAB PO SCH (06:24)
[2019-10-04] MEDS: Oseltamivir 75 MG CAP PO SCH (09:00)
[2019-10-04] MEDS: Cefepime 2 GM in Sodium Chloride 0.9% 100 ML IVPB SCH (09:00)
[2019-10-04] MEDS ORDERED: Amlodipine 5 MG TAB PO SCH (09:00)
[2019-10-04] MEDS: Lisinopril 10 MG TAB PO SCH (09:00)
[2019-10-04] MEDS ORDERED: Hydrochlorothiazide 25 MG TAB PO SCH (09:00)
[2019-10-04] MEDS: Simethicone Chewable 80 MG TAB PO SCH ×2 (09:00→14:54)
[2019-10-04] MEDS: Spironolactone 25 MG TAB PO SCH (09:00)
[2019-10-04] MEDS: Enoxaparin Sodium 30 MG/0.3 ML SYRINGE SC SCH (09:01)
[2019-10-04 16:50] VITALS: BP 168/84; TEMP 98.6
--- NOTE | 2019-10-05 03:45 | DIS ---
DATE OF ADMISSION: 09/30/2019 DATE OF DISCHARGE: 10/04/2019 RESIDENT: Remigio Pereira MD ADMITTING ATTENDING: Luke Orellana MD DISCHARGE ATTENDING: Ezequiel Gant MD. CONSULTS: None. PROCEDURES: * Abdomen and pelvis CT on 09/30 showed probable right breast mass. Evaluation with mammogram and right breast ultrasound recommended. Calcified splenic granulomas. Bilateral renal cysts. Distended urinary bladder. Dextroscoliosis of the lumbar spine. Bibasilar infiltrates, right greater than left. * Chest x-ray on 09/30 showed no radiographic evidence of acute cardiopulmonary process. PRIMARY DIAGNOSES: 1. Bilateral pneumonia secondary to influenza. 2. Right breast mass. 3. Hyponatremia. 4. Elevated troponin. SECONDARY DIAGNOSES: 1. Dysphagia 2. Malnutrition 3. Chronic deconditioning 4. C. diff with fecal transplant on 09/29 5. Hypertension 6. Hypothyroidism DISCHARGE MEDICATIONS: 1. Amlodipine 5 mg p.o. daily. 2. Omnicef 300 mg p.o. q.12 hours for five days. 3. Tamiflu 75 mg p.o. daily for four days. DISCONTINUED MEDICATIONS: 1. Tessalon Perles. 2. Cefepime. 3. Trental. 4. Lovenox. 5. Hydralazine. 6. Lisinopril. 7. Melatonin. 8. Zofran. 9. Protonix. 10. Simethicone drops. HISTORY OF PRESENT ILLNESS: The patient is an 89-year-old female who presented to the ED with altered mental status, abdominal pain, and chest pain. She became altered on 09/30 and noticed by her son in the afternoon, she was febrile as well, and given Tylenol by her son. She was complaining of diffuse abdominal pain. On 09/29, she had a fecal transplant for a C diff infection. During her interview, she denied any chest pain, but it was reported by the Emergency Department. Otherwise, unable to obtain any information from the patient due to mental status. Her son was not present during the interview. In the ED, she had a CT abdomen as noted above, but no bilateral pneumonia seen. She received normal saline 1.5 L, Levaquin, cefepime, vancomycin, and Zosyn. Her white blood cell count was elevated to 12.4, sodium was 129, and troponin was 0.06. Her troponin trended down during the hospital stay. 1. Bilateral pneumonia secondary to influenza * She received Tamiflu 75 mg b.i.d. * She had no symptoms of chest pain, fever, abdominal pain, and cough. * She was on cefepime and vancomycin during her hospital stay, was discharged with Tamiflu and Omnicef. * Procalcitonin trended down from 1.3 to 0.52. 2. Dysphagia, likely functional, chronic in nature. * She declined speech consultation. 4. Malnutrition and chronic deconditioning. * PT, OT, and Speech were consulted for evaluation and treatment. * The patient was started on Ensure b.i.d. 5. C diff with fecal transplant on 09/29. * Safety precautions in place during her hospital stay. * No current diarrhea or abdominal pain. 6. Hyponatremia. 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 * We will monitor and fluid restrict. 7. Right breast mass. * Mammogram outpatient. * The patient and family want to proceed with setting up mammogram outpatient. 9. Hypertension. * Continue home medications * Amlodipine started. 10. Hypothyroidism. * Continue home medications. Greater than 30 minutes was spent with the patient coordinating discharge. It was strongly recommended that patient have short course at the longterm facility or rehab, but family and patient declined. The patient will be sent home with home health. DISPOSITION: Stable, but deconditioned. DISCHARGE INSTRUCTIONS: 1. Location: Home. 2. Diet: Heart healthy low-sodium. 3. Activity: As tolerated and work with physical therapy with home health. 5. Followup with Dr. Sharma in 7 days. Job ID: [id number] [facility]
--- NOTE | 2019-10-05 08:00 | PQF ---
JOVI GRECO MARK Chapis ramesh [id number] CLINICAL DOCUMENTATION CLARIFICATION FORM: POST DISCHARGE Addendum to original discharge summary date: ____ Late entry note date: __ DATE: 10/05/2019 ATTN:ANNITA JEFFERY Please exercise your independent, professional judgment in responding to the clarification form. Clinical indicators are provided on the bottom of this form for your review Please check appropriate box(s) to clarify if the following diagnosis has been ruled in or ruled out: SEPSIS [ ] Ruled in diagnosis [ ] Continue to treat [ X ] Resolved [ ] Ruled out diagnosis [ ] Cannot rule out diagnosis [ ] Other diagnosis [ ] Unable to determine For continuity of documentation, please document condition throughout progress notes and discharge summary. Thank You. CLINICAL INDICATORS - SIGNS / SYMPTOMS / LABS - Sepsis - ED record, 09/30, Johanny Chase MD - Temp: 96L on 10/01, 100.5H on 10/02- Vital signs - WBC: 13.4H, 18.6H, 15.1H- Laboratory report - RR: 21H on 10/02, 24H on 10/03-- Vital signs - Pulse: 101H on 10/02, 102H on 10/03-- Vital signs RISK FACTORS - Bilateral pneumonia, HAP- Family medicine H&P, 09/30, Esteban Butler MD - Influenza- Family medicine H&P, 09/30, Esteban Butler MD TREATMENTS - Piperacillin.IV- OCT, 09/30 - Levofloxacin.IV- OCT, 09/30 (This form is maintained as a part of the permanent medical record) 2014 [employer]. All Rights Reserved [employer]
--- NOTE | 2019-10-05 22:58 | PQF ---
JOVI GRECO MARK * r [id number] CLINICAL DOCUMENTATION CLARIFICATION FORM: POST DISCHARGE Addendum to original discharge summary date: ____ Late entry note date: __ Date: ATTN: ANNITA JEFFERY Please exercise your independent, professional judgment in responding to the clarification form. Clinical indicators are provided on the bottom of this form for your review Please check appropriate box(s): [ ] Protein Calorie Malnutrition: [ ] Mild [ ] Moderate [ ] Severe [ x ] Unspecified Protein calorie Malnutrition [ ] Unable to determine CLINICAL INDICATORS - SIGNS / SYMPTOMS / LABS - Malnutrition and chronic deconditioning- DS, 10/04, ANNITA JEFFERY - Dysphagia, likely functional, chronic in nature-DS, 10/04LATIA MARK - Hyponatremia, suspected chronic secondary to malnutrition-DS, 10/04, ANNITA JEFFERY - BMI- 23.0- FNS assessment 10/01 RISK FACTORS - Bilateral pneumonia secondary to influenza- DS, 10/04LATIA MARK TREATMENT: - Ensure Enlive BID-FNS assessment 10/03 Moderate Malnutrition (in acute illness) Energy Intake: <75% of estimated energy requirement for > 7 days Weight Loss: 1-2%/1 week; 5%/ 1 month; 7.5%/3 months Other: mild body fat loss; mild muscle mass loss; mild fluid accumulation; Severe Malnutrition (in acute illness) Energy Intake: < 50% of estimated energy requirement for > 5 days Weight Loss: >1-2%/1 week; >5%/1 month; >7.5%/3 months Other: moderate body fat loss; moderate muscle mass loss; moderate- severe fluid accumulation; measurably reduced community placement worker strength Moderate Malnutrition (in chronic illness) Energy Intake: <75% of estimated energy requirement for >1 month Weight Loss: 5%/1 month; 7.5%/3 months; 10%/6 months; 20%/1 year Other: mild body fat loss; mild muscle mass loss; mild fluid accumulation Severe Malnutrition (in chronic illness) Energy Intake: <75% of estimated energy requirement for >1 month Weight Loss: >5%/1 month; >7.5%/3 months; >10%/6 months; >20%/1 year Other: severe body fat loss; severe muscle mass loss; severe fluid accumulation ; measurably reduced community placement worker strength (This form is maintained as a part of the permanent medical record) 2014 [employer]. All Rights Reserved Kaiden [email or web address]
== END 2019-10-04 15:08 | disposition home health service (06) | DRG 871 ==
LOC: ERS 19:49 → 2NO 23:47 → T4-A 10-03 12:10
PROVIDERS: ADMIT Emergency Medicine; ATTEND Emergency Medicine
DX: A41.9 Sepsis, unspecified organism (principal); J11.00 Influenza due to unidentified influenza virus with unspecified type of pneumonia; E87.1 Hypo-osmolality and hyponatremia; E46 Unspecified protein-calorie malnutrition; N17.9 Acute kidney failure, unspecified; N63.0 Unspecified lump in unspecified breast; I12.9 Hypertensive chronic kidney disease with stage 1 through stage 4 chronic kidney disease, or unspecified chronic kidney disease; R79.89 Other specified abnormal findings of blood chemistry; R13.10 Dysphagia, unspecified; K21.9 Gastro-esophageal reflux disease without esophagitis; N18.9 Chronic kidney disease, unspecified; E86.9 Volume depletion, unspecified; R53.81 Other malaise; E03.9 Hypothyroidism, unspecified; M41.86 Other forms of scoliosis, lumbar region; Z88.2 Allergy status to sulfonamides; Z88.8 Allergy status to other drugs, medicaments and biological substances
CPT/HCPCS: 36415; 71045; 74177; 80048; 80053; 80202; 81003; 81015; 82306; 83605; 83735; 83930; 83935; 84145; 84484; 85025; 87040; 87086; 87804; 88305; 88312; 88313; 93005; 96361; 96365; 96367; 96375; J0360; J0692; J1650; J1956; J2001; J2543; J2704; J3370; J3475; J3480; J3490; J7050; Q0162; Q9967

== ENCOUNTER 2020-05-31 13:51 | Outpatient (CLI) | payer MEDICARE, BC ==
--- NOTE | 2020-05-31 15:28 | MRI ---
MR OF THE THORACIC SPINE WITHOUT CONTRAST INDICATION: 89-year-old female with mid back pain TECHNIQUE: Multiplanar multisequence MR images were obtained of the thoracic spine without contrast. Spine count series was provided. COMPARISON: None FINDINGS: Bone marrow signal intensity: There is a mild superior endplate wedge compression fracture of T9 with approximately 50% loss of height within the anterior and central aspect of the vertebral body. There is very mild retropulsion of bone fragments from the posterior superior margin of T9 inducing s ome effacement of the subarachnoid space without cord compression. Spinal alignment: There is mild levoscoliosis of the thoracic spine. Spinal cord: Normal signal intensity and contour. Paravertebral soft tissues: Normal Vertebral levels: T1-T2: No appreciable central canal or neural foraminal narrowing is evident. T2-T3: No appreciable central canal or neural foraminal narrowing. T3-T4: No appreciable central canal or neural foraminal narrowing.. T4-T5: No appreciable central canal or neural foraminal narrowing. T5-T6: No appreciable central canal or neural foraminal narrowing. T6-T7: No appreciable central canal or neural foraminal narrowing. T7-T8: No appreciable central canal or neural foraminal narrowing. T8-T9: There is a broad-based disc osteophyte complex in addition to retropulsed bone fragments from the posterior superior margin of T9 causing some mild effacement of the ventral subarachnoid space without cord compression. T9-T10: There is a mild broad-based bulge. No appreciable central canal or neural foraminal narrowing . T10-T11: No appreciable central canal or neural foraminal narrowing. T11-T12: No appreciable central canal or neural foraminal narrowing. T12-L1: There is a left paracentral protrusion but no appreciable central canal or neural foraminal n arrowing. Additional findings: None. IMPRESSION: 1. Acute mild superior endplate wedge compression fracture of T9 with approximately 50% loss of heigh t. There is mild retropulsion of bone fragments from the posterior superior margin of T9 inducing some mild effacement of the subarachnoid space without cord compression. 2. Mild thoracic spondylosis. Mild thoracic scoliotic curvature.
== END 2020-05-31 13:52 | disposition home or self-care (01) ==
LOC: BICMRI 13:51
PROVIDERS: ATTEND Orthopaedic Surgery
DX: S22.070A Wedge compression fracture of T9-T10 vertebra, initial encounter for closed fracture (principal); M47.814 Spondylosis without myelopathy or radiculopathy, thoracic region; M41.9 Scoliosis, unspecified
CPT/HCPCS: 72146

== ENCOUNTER 2020-06-06 14:31 | Emergency (ER) | payer MEDICARE, BC ==
[2020-06-06] MEDS ORDERED: Ondansetron PF 4 MG/2 ML Vial ONE (15:41)
[2020-06-06 16:18] LABS: Hemoglobin 13.6 g/dL (12.0-16.0); Mean Corpuscular HGB CONC 34.4 g/dL (32.0-36.0); Mean Corpuscular Hemoglobin 32.3 pg (27.0-31.0); Mean Platelet Volume 6.1 fL (7.4-10.4); Platelet Count 397 thou/uL (130-400); RBC Distribution Width 11.7 % (11.5-14.5); Red Blood Cell (RBC) Count 4.22 mill/uL (4.20-5.40)
[2020-06-06 16:29] LABS: ALT (SGPT) Less than 7 U/L (8-55); AST (SGOT) 24 U/L (5-34); Albumin 3.7 g/dL (3.4-4.8); Alkaline Phosphatase 70 U/L (40-110); Anion Gap 15 mmol/L (10-20); BUN (Urea Nitrogen) 25 mg/dL (9.8-20.1); Bilirubin, Total 0.4 mg/dL (0.2-1.2); Calc. Creatinine Clearance 0 mL/min (70-130); Calcium 8.8 mg/dL (7.8-10.44); Carbon Dioxide 22 mmol/L (23-31); Chloride 94 mmol/L (98-107); Estimated GFR-MDRD 50; Glucose 82 mg/dL (83-110); Protein, Total 6.7 g/dL (6.0-8.3); Sodium 127 mmol/L (136-145)
[2020-06-06 16:37] LABS: Bacteria/HPF 4+ HPF (None Seen); Bilirubin Negative (Negative); Blood, Urine 1+ (Negative); Clarity Extra Turbid (Clear); Glucose, Urine (Dipstick) Normal (Negative); Ketone, Urine 10 mg/dL (Negative); Leukocyte 500 Leu/uL (Negative); Nitrite Negative (Negative); Protein, Urine (Dipstick) 50 mg/dL (Neg-Trace); RBC/HPF 0-3 HPF (0-3); Specific Gravity, Urine 1.014 (1.002-1.036); Squamous Epithelial 0-3 HPF (0-3); Urobilinogen Normal mg/dL (Less than 2); WBC/HPF Greater than 50 HPF (0-3)
[2020-06-06 16:40] LABS: Band 27 % (5-11); Eosinophils 2 % (0-10); Lymphocytes 12 % (21-51); MDiff Complete? YES; Monocytes 14 % (0-10); Neutrophil 43 % (42-75); Platelet Morphology Comment Appears Adequate; Polychromasia SLIGHT = 2-3 cells (100X) (0-2/hpf); Reactive Lymphocytes 2 % (0-10)
[2020-06-06] MEDS ORDERED: cefTRIAXone\\ROCEPHIN 2 GM VIAL ONE (18:04)
[2020-06-06] MEDS ORDERED: cefTRIAXone\\ROCEPHIN 1 GM VIAL ONE (18:10)
--- NOTE | 2020-06-06 18:10 | CT ---
CT ABDOMEN AND PELVIS PERFORMED WITH CONTRAST ENHANCEMENT: 06/06/20 HISTORY: Abdominal pain, nausea and vomiting. The patient has not had a bowel movement in about one week. The lung bases show some more chronic appearing interstitial changes. There is more of an infiltrativ e process seen on the right lower lobe on the 09/30/19 exam. The changes are felt to represent residu al changes related to scarring. There is a hiatal hernia noted. The liver, spleen, and pancreas regio ns appear unremarkable. The pancreas being mildly atrophic. Gallbladder is slightly distended but no inflammatory change adjacent to the gallbladder. Right and left adrenal glands are normal in appearance. The right and left kidneys show some cortical thinning involving the left kidney. Small hypodensity within the right kidney is most compatible wit h a cyst. There is no significant periaortic or mesenteric adenopathy. Mild amount of stool throughou t the colon. No signs for obstruction. CT OF PELVIS PERFORMED WITH CONTRAST ENHANCEMENT: There is no evidence of adenopathy, mass or free fluid. Appendix is not definitively identified but I see no evidence for appendicitis. I see portions of what I believe to be a nondilated appendix. The bladder is mildly distended. Review of osseous structures. Some generalized bone demineralization. There is scoliosis and marked a rthritic changes of the lumbar spine. IMPRESSION: 1. Parenchymal changes in the lung bases which are felt to represent scar. 2. Small hiatal hernia. 3. No acute findings of the abdomen or pelvis. Postoperative changes with an anastomotic suture line associated with the small bowel in the left lower quadrant again demonstrated. POS: MIGUEL
== END 2020-06-06 19:01 | disposition home or self-care (01) ==
LOC: ERS 14:31
DX: R10.9 Unspecified abdominal pain (principal); N39.0 Urinary tract infection, site not specified; M41.9 Scoliosis, unspecified; I10 Essential (primary) hypertension
CPT/HCPCS: 36415; 51701; 74177; 80053; 81003; 81015; 85025; 87077; 87086; 87186; 93005; 96365; 96375; J0696; J2405; Q9967